=== PATIENT | female | born 1960 | race Caucasian/White ===

== ENCOUNTER 2021-12-12 19:09 | Emergency (ER) | payer BC | END 2021-12-13 00:15 | disposition other institution (70) | LOC: JD.ED 19:09 | DX: R07.89 Other chest pain (principal); F22 Delusional disorders; F41.9 Anxiety disorder, unspecified; F17.210 Nicotine dependence, cigarettes, uncomplicated; Z91.048 Other nonmedicinal substance allergy status; Z91.040 Latex allergy status; Z88.0 Allergy status to penicillin; Z20.822 Contact with and (suspected) exposure to COVID-19 | CPT/HCPCS: 36415; 70450; 70450-26; 71046; 71046-26; 80053; 80306; 81001; 84484; 85025; 93005; 99285; U0002 ==